=== PATIENT | female | born 1975 | race Caucasian/White ===

== ENCOUNTER 2022-05-22 07:25 | Day surgery (SDC) | payer BC, SELFPAY ==
[2022-05-16 12:16] VITALS: BMI 25.6
--- NOTE | 2022-05-21 08:52 | HO.ANESPROP2 ---
Documented by User: Blanca Antoine NP 05/21/22 08:52 HPI - Anesthesia Eval Consult details Narrative: 47yo F for Colonoscopy [facility] Past Medical History Medical History (Updated 05/22/22 @ 08:14 by Stephanie Handy MD) Arthritis Bradycardia CKD (chronic kidney disease), stage III HTN (hypertension) Hyperlipidemia Hypothyroid Surgical History Surgical History History of bilateral breast reduction surgery History of bunionectomy of both great toes History of lumpectomy of left breast History of ovarian cystectomy History of partial thyroidectomy History of shoulder surgery Social History Social History Patient Tobacco Use Status: Never used Tobacco Use of substances other than those prescribed or required for medical reasons: No Are you DNR?: No Advance Directives: No Advance Directives Information Provided: Yes Recently lost weight without trying: No Nutrition Risks: No Nutritional Risk Meds Allergies Allergy/AdvReac Type Severity Reaction Status Date / Time oxycodone [From PERCOCET] Allergy Unknown ITCHING Verified 05/22/22 07:55 ALL OVER Penicillins [PENICILLINS] Allergy Unknown HIVES,THROAT Verified 05/22/22 07:55 SWELLING Home Medications Medication Instructions Recorded Confirmed Last Taken Type levothyroxine 25 mcg tablet 25 mcg PO DAILY 05/16/22 05/16/22 05/22/22 History (Synthroid) olmesartan 5 mg tablet 5 mg PO DAILY 05/16/22 05/16/22 05/22/22 History rosuvastatin 10 mg tablet 10 mg PO DAILY 05/16/22 05/16/22 Unknown History Exam Exam Date and Time: May 21, 2022 0852 Height,Weight and Vital Signs: Height 5 ft 5 in Weight 69.853 kg Assessment and Plan Assessment Anesthesia Assessment: Chart Reviewed Documented by User: Stephanie Handy MD 05/22/22 08:46 [facility] Active Problems Active Problems: CKD stage 3 per record. No labs or other history available. Patient sees Dr Salazar twice a year to monitor kidney function.BUN/Cr up to 31/9.5 . Apparently fluctuates. No cause for increase identified per patient. Last bloodwork(not available to us) but apparently ok per patient. Past Medical History Medical History (Updated 05/22/22 @ 08:14 by Stephanie Handy MD) Arthritis Bradycardia CKD (chronic kidney disease), stage III HTN (hypertension) Hyperlipidemia Hypothyroid Family History Family history of problems with anesthesia: No Surgical History Surgical History History of bilateral breast reduction surgery History of bunionectomy of both great toes History of lumpectomy of left breast History of ovarian cystectomy History of partial thyroidectomy History of shoulder surgery History of Problems with Anesthesia: Yes (PONV) Social History Social History Patient Tobacco Use Status: Never used Tobacco Use of substances other than those prescribed or required for medical reasons: No Are you DNR?: No Advance Directives: No Advance Directives Information Provided: Yes Recently lost weight without trying: No Nutrition Risks: No Nutritional Risk Meds Allergies Allergy/AdvReac Type Severity Reaction Status Date / Time oxycodone [From PERCOCET] Allergy Unknown ITCHING Verified 05/22/22 07:55 ALL OVER Penicillins [PENICILLINS] Allergy Unknown HIVES,THROAT Verified 05/22/22 07:55 SWELLING Home Medications Medication Instructions Recorded Confirmed Last Taken Type levothyroxine 25 mcg tablet 25 mcg PO DAILY 05/16/22 05/16/22 05/22/22 History (Synthroid) olmesartan 5 mg tablet 5 mg PO DAILY 05/16/22 05/16/22 05/22/22 History rosuvastatin 10 mg tablet 10 mg PO DAILY 05/16/22 05/16/22 Unknown History Exam Airway Mallampati Class: II TM Dist: >3cm Neck ROM: Full Loose/Missing/Broken Teeth: No (No loose or broken teeth per patient) Heart: RRR Lungs: CTAB Assessment and Plan Assessment Anesthesia Assessment: Anesthesia Plan Discussed Final Anesthetic Review Family History of Problems with Anesthesia: No History of Problems with Anesthesia: Yes (PONV) NPO: Yes ASA Class: III Final Preanesthetic Review: No Changes in Pt Med Stat, Meds/Allgs Chart Reviewed, Consent Obtained/Reviewed and Anes Risks/Benef Reviewed Patient Risk: Intermediate Procedure Risk: Low Assessment/Block/Sedation in SS: Assess/Block/Sedation-SS Anesthetic Plan Anesthetic Plan: MAC: Disposition: Standard PACU
[2022-05-22 07:58] VITALS: BMI 25.1
[2022-05-22 08:23] LABS: UPreg QC Valid YES; Urine Pregnancy NEGATIVE (NEGATIVE)
[2022-05-22 08:25] VITALS: BP 118/83; PULSE 51; RESP 16; TEMP 36.6; O2SAT 97
[2022-05-22] MEDS: Lactated Ringers 1,000 ML 100 ML IVCONT (08:33)
--- NOTE | 2022-05-22 08:46 | MHC.SHP ---
Pre-Procedural Eval Section A Date of Service: 05/22/22 Section B Chief Complaint: screening Details of Present Illness: see H&P no changes Relevant Family History (Specify if Yes): No Relevant Social History: None Present Medications: see Short Stay Collaborative assessment Medical History: No relevant PMH History of Previous Operations: No relevant previous surgery Allergies: Allergies Allergy/AdvReac Type Severity Reaction Status Date / Time oxycodone [From PERCOCET] Allergy Unknown ITCHING Verified 05/22/22 07:55 ALL OVER Penicillins [PENICILLINS] Allergy Unknown HIVES,THROAT Verified 05/22/22 07:55 SWELLING Review of Systems Sugical H&P ROS: Negative: Constitution, Cardiovascular, Respiratory, Neurological, Psychiatric, Hem-Onc, Allergic/Immunologic, Gastrointestinal, Genitourinary, Musculoskeletal, Integumentary, Endocrine and Eyes/Ears/Nose/Throat Exam Surgical H&P Exam: Normal: HEENT, Normal: Heart, Normal: Lungs, Normal: Extremities, Normal: Abdomen, Normal: Skin and Normal: Neurological Plan Diagnosis/Plan: Unchanged I have reviewed the history and physical and performed a pertinent physical examination on my patient. No changes have occurred unless specified.
--- NOTE | 2022-05-22 09:17 | P.BOP_ITS ---
Brief Operative Note Date of Service: 05/22/22 Pre-op diagnosis: screening Post-op diagnosis: same Procedure: colonoscopy Surgeon: Abraham Mayfield Anesthesia: MAC Was an Photocopy Operator used for this Procedure?: No Estimated blood loss (mL): 0 Pathology: none sent Condition: stable Disposition: PACU
[2022-05-22 09:18] VITALS: BP 103/68; PULSE 76; RESP 16; TEMP 36.5; O2SAT 97
[2022-05-22 09:33] VITALS: BP 121/84; PULSE 58; RESP 16; TEMP 36.3; O2SAT 98
--- NOTE | 2022-05-22 09:54 | OP_ITS ---
SURGEON: Abraham Mayfield MD INDICATIONS: Colon cancer screening. PREOPERATIVE DIAGNOSIS: POSTOPERATIVE DIAGNOSIS: PROCEDURE PERFORMED: ESTIMATED BLOOD LOSS: COMPLICATIONS: ANESTHESIA: ASSISTANTS: SPECIMENS: PROCEDURE: Colonoscopy to the terminal ileum. MEDICATIONS: Monitored anesthesia care. DESCRIPTION OF PROCEDURE: History and physical performed. The risks and benefits of the procedure were explained to the patient. Informed consent was obtained. The patient was placed in a left lateral decubitus position. A digital rectal exam was performed and was found to be normal. The Olympus pediatric videocolonoscope was introduced into the rectum and advanced to the cecum without difficulty. The cecum was identified by transillumination, palpation, and identification of ileocecal valve. Examination was performed. The scope was removed. She tolerated the procedure well and was taken to recovery in stable condition. FINDINGS: The terminal ileum was examined and appeared normal. The visualized colonic mucosa was normal. The quality of the prep was good. However, there was some undigested food material in the sigmoid, which limited the sensitivity examination for detection of small polyps. This was washed and suctioned. There was a single diverticulum seen in the sigmoid. No polyps were identified. Retroflexed examination showed some small internal hemorrhoids. IMPRESSION: Normal colonoscopy. RECOMMENDATION: 1. Follow up as needed. 2. Repeat colonoscopy is recommended in 10 years for average risk individuals. MD LAWANDA Hussein/VIRIDIANA / [id number]
== END 2022-05-22 10:00 | disposition home or self-care (01) ==
PROVIDERS: Nurse Practitioner; PCP Internal Medicine; Visit Provider Internal Medicine Gastroenterology
PROC: 0DJD8ZZ Inspection of Lower Intestinal Tract, Via Natural or Artificial Opening Endoscopic (ICD-10-PCS; CPT 45378; principal; 2022-05-22 08:50)
DX: Z12.11 Encounter for screening for malignant neoplasm of colon (principal); K57.30 Diverticulosis of large intestine without perforation or abscess without bleeding; K64.8 Other hemorrhoids; I12.9 Hypertensive chronic kidney disease with stage 1 through stage 4 chronic kidney disease, or unspecified chronic kidney disease; N18.30 Chronic kidney disease, stage 3 unspecified; E78.5 Hyperlipidemia, unspecified; E03.9 Hypothyroidism, unspecified; R00.1 Bradycardia, unspecified; Z79.899 Other long term (current) drug therapy; Z88.0 Allergy status to penicillin; Z88.8 Allergy status to other drugs, medicaments and biological substances
CPT/HCPCS: 45378; 81025